=== PATIENT | female | born 1950 | race Caucasian/White ===

== ENCOUNTER 2018-01-21 11:48 | Emergency (ER) | payer MEDICARE, MEDICAID ==
[2018-01-21 12:18] LABS: URINE APPEARANCE SL CLOUDY; URINE BILIRUBIN NEGATIVE (NEGATIVE); URINE BLOOD NEGATIVE (NEGATIVE); URINE COLOR YELLOW; URINE GLUCOSE (UA) NEGATIVE (NEGATIVE); URINE KETONE NEGATIVE (NEGATIVE); URINE LEUKOCYTE ESTERASE NEGATIVE (NEGATIVE); URINE NITRITE NEGATIVE (NEGATIVE); URINE UROBILINOGEN 0.2 E.U./dL (0.20 - 1.00)
[2018-01-21 12:22] LABS: URINE RBC NONE SEEN (NONE SEEN); URINE WBC NONE SEEN (0-2/hpf)
--- NOTE | 2018-01-21 12:36 | Emergency Department Record ---
History of Present Illness - General Chief Complaint: Abdominal Pain Stated Complaint: ABD PAIN Time Seen by Provider: 01/21/18 12:30 Source: Patient, RN notes reviewed Mode of Arrival: Wheelchair - History of Present Illness Initial Comments: bilateral lower abd pain which started 2 days ago.vomiting times one after tea and toast this am. yesterday vomited times three. psh hysterectomy.appendectomy. patient was constipated on friday and took a dulculax yesterday and had a BM today Complaint: Abdominal pain Onset/Timin -: Days(s) Location: LLQ, RLQ Radiation: None Severity: Moderate Quality: Cramping, Sharp Consistency: Constant Improves With: Nothing Worsens With: Nothing Context: Other Associated Symptoms: Vomiting - Related Data Previous Rx's Medication Instructions Recorded Ciprofloxacin HCl [Cipro] 500 mg PO Q12HR #20 tablet 01/21/18 Hydrocodone/Acetaminophen [[place] 1 each PO Q4HR #20 tablet 01/21/18 5-325 Tablet] Metronidazole [Flagyl] 500 mg PO Q8HR #30 tablet 01/21/18 Allergies Allergy/AdvReac Type Severity Reaction Status Date / Time Penicillins Allergy hives Verified 01/21/18 11:53 Sulfa (Sulfonamide Allergy hives Verified 01/21/18 11:53 Antibiotics) Travel Screening - Travel/Exposure Within Last 30 Days Have you traveled within the last 30 days?: No - Travel/Exposure Within Last Year Have you traveled outside the [place] in the last year?: No - Additonal Travel Details Have you been exposed to anyone with a communicable illness?: No - Travel Symptoms Symptom Screening: None Review of Systems Reviewed: No additional complaints except as noted below Constitutional: Reports: As per HPI. Denies: Chills, Fever, Malaise, Night sweats, Weakness, Weight change Eyes: Reports: As per HPI. Denies: Eye discharge, Eye pain, Photophobia, Vision change ENT: Reports: As per HPI. Denies: Congestion, Dental pain, Ear pain, Epistaxis , Hearing loss, Throat pain Respiratory: Reports: As per HPI. Denies: Cough, Dyspnea, Hemoptysis, Stridor, Wheezes Cardiovascular: Reports: As per HPI. Denies: Arrhythmia, Chest pain, Dyspnea on exertion, Edema, Murmurs, Orthopnea, Palpitations, Paroxysmal nocturnal dyspnea, Rheumatic Fever, Syncope Endocrine: Reports: As per HPI. Denies: Fatigue, Heat or cold intolerance, Polydipsia, Polyuria Gastrointestinal: Reports: As per HPI, Abdominal pain, Vomiting. Denies: Constipation, Diarrhea, Hematemesis, Hematochezia, Melena, Nausea Genitourinary: Reports: As per HPI. Denies: Abnormal menses, Discharge, Dyspareunia, Dysuria, Frequency, Hematuria, Incontinence, Retention, Urgency Musculoskeletal: Reports: As per HPI. Denies: Arthralgia, Back pain, Gout, Joint swelling, Myalgia, Neck pain Skin: Reports: As per HPI. Denies: Bruising, Change in color, Change in hair/ nails, Lesions, Pruritus, Rash Neurological: Reports: As per HPI. Denies: Abnormal gait, Confusion, Headache, Numbness, Paresthesias, Seizure, Tingling, Tremors, Vertigo, Weakness Psychiatric: Reports: As per HPI. Denies: Anxiety, Auditory hallucinations, Depression, Homicidal thoughts, Suicidal thoughts, Visual hallucinations Hematological/Lymphatic: Reports: As per HPI. Denies: Anemia, Blood Clots, Easy bleeding, Easy bruising, Swollen glands Past Medical History - SOCIAL HISTORY Smoking Status: Never smoker Alcohol Use: None Drug Use: Heavy Drug Use Detail:: Marijuana - RESPIRATORY Hx Respiratory Disorders: No - CARDIOVASCULAR Hx Cardio Disorders: No - NEURO Hx Neuro Disorders: Yes Hx Headaches: Yes - GI Hx GI Disorders: No - Hx Genitourinary Disorders: No - ENDOCRINE Hx Endocrine Disorders: Yes Hx Diabetes: Yes - MUSCULOSKELETAL Hx Musculoskeletal Disorders: Yes Hx Arthritis: Yes - PSYCH Hx Psych Problems: No - HEMATOLOGY/ONCOLOGY Hx Hematology/Oncology Disorders: No Family Medical History Any Significant Family History?: Yes Hx Cancer: Father, Mother Physical Exam - General General Appearance: Alert, Oriented x3, Cooperative, Mild distress - Head Head exam: Normal inspection - Eye Eye exam: Normal appearance, PERRL Pupils: Normal accommodation - ENT ENT exam: Normal exam, Mucous membranes moist, Normal external ear exam, Normal orophraynx, TM's normal bilaterally Ear exam: Normal external inspection. negative: External canal tenderness Nasal Exam: Normal inspection. negative: Discharge, Sinus tenderness Mouth exam: Normal external inspection, Tongue normal Teeth exam: Normal inspection. negative: Dental caries Throat exam: Normal inspection. negative: Tonsillar erythema, Tonsillar exudate - Neck Neck exam: Normal inspection, Full ROM. negative: Tenderness - Respiratory Respiratory exam: Normal lung sounds bilaterally. negative: Respiratory distress - Cardiovascular Cardiovascular Exam: Regular rate, Normal rhythm, Normal heart sounds - GI/Abdominal GI/Abdominal exam: Soft, Normal bowel sounds, Tenderness (bilateral abdominal pain) - Rectal Rectal exam: Deferred - exam: Deferred - Extremities Extremities exam: Normal inspection, Full ROM, Normal capillary refill. negative: Tenderness - Back Back exam: Reports: Normal inspection, Full ROM. Denies: Muscle spasm, Rash noted, Tenderness - Neurological Neurological exam: Alert, Normal gait, Oriented X3, Reflexes normal - Psychiatric Psychiatric exam: Normal affect, Normal mood - Skin Skin exam: Dry, Intact, Normal color, Warm Course Vital Signs 01/21/18 11:58 Temperature 97.7 F Pulse Rate 80 Respiratory 20 Rate Blood Pressure 115/74 Pulse Ox 95 discussed treatment of diverticulitis inpatient vs outpatient and patient wants to try outpatient treatment. If she gets worse she should return to the ED. follow up with primary DrHilda in 2-5 days sooner if worse. Medical Decision Making - Data Complexity MDM Data: Labs Ordered and/or Reviewed, X-Ray Ordered and/or Reviewed ( diverticulitis) - Lab Data Result diagrams: 01/21/18 13:00 01/21/18 13:00 Lab Results 01/21/18 Range/Units 12:10 Urine Color Yellow Urine Appearance Sl cloudy Urine pH 5.5 (5.0-8.0) Ur Specific [place] 1.025 (1.002-1.030) Urine Protein 30 mg/dl H (NEGATIVE) Urine Glucose (UA) Negative (NEGATIVE) Urine Ketones Negative (NEGATIVE) Urine Blood Negative (NEGATIVE) Urine Nitrite Negative (NEGATIVE) Urine Bilirubin Negative (NEGATIVE) Urine Urobilinogen 0.2 (0.20 - 1.00) E.U./dL Ur Leukocyte Esterase Negative (NEGATIVE) Urine RBC None seen (NONE SEEN) Urine WBC None seen (0-2/hpf) Ur Epithelial Cells 3 - 6 (FEW) Disposition Clinical Impression: Diverticulitis large intestine Qualifiers: Diverticulitis bleeding: without bleeding Diverticulitis complication: without perforation or abscess Qualified Code(s): K57.32 - Diverticulitis of large intestine without perforation or abscess without bleeding Disposition: Home, Self-Care Condition: (1) Good Additional Instructions: follow up with primary DrHilda in 2-5 days and if worse return to ED clear liquids today gradually increase diet Prescriptions: Hydrocodone/Acetaminophen [[place] 5-325 Tablet] 1 each PO Q4HR #20 tablet Metronidazole [Flagyl] 500 mg PO Q8HR #30 tablet Ciprofloxacin HCl [Cipro] 500 mg PO Q12HR #20 tablet Forms: Patient Portal Access Time of Disposition: 16:53 Quality - Quality Measures Quality Measures: N/A - Blood Pressure Screening Does Patient Have Any of the Following: No Blood Pressure Classification: Normal BP Reading Systolic Measurement: 115 Diastolic Measurement: 74 Screening for High Blood Pressure: < Normal BP, F/U Not Required > [G8783]
[2018-01-21] MEDS ORDERED: 0.9 % SODIUM CHLORIDE 1000ML 1,000 ML IV PRN (12:48)
[2018-01-21 13:10] LABS: HEMATOCRIT 35.4 % (35.0-47.0); HEMOGLOBIN 11.6 gm/dl (11.6-16.0); MEAN CELL VOLUME 88.7 fl (81-97); MEAN CORPUSCULAR HEMOGLOBIN 29.1 pg (27-33); MEAN CORPUSCULAR HGB CONC 32.8 g/dl (32-36); MEAN PLATELET VOLUME 8.8 fl (7.4-10.4); PLATELET COUNT 279 K/uL (130-400); RED BLOOD COUNT 3.99 M/uL (3.80-5.40); WHITE BLOOD COUNT W/O DIFF 14.4 K/uL (4.2-12.2)
[2018-01-21 13:20] LABS: PLATELET ESTIMATE NORMAL (NORMAL)
[2018-01-21 13:21] LABS: BLOOD UREA NITROGEN 23 mg/dL (8-23); CREATININE 1.4 mg/dL (0.5-0.9); EST GLOMERULAR FILTRATION RATE 40 mL/min
[2018-01-21 13:22] LABS: TOTAL PROTEIN 7.9 g/dL (6.6-8.7)
[2018-01-21 13:24] LABS: GLUCOSE,RANDOM 137 mg/dL (74-109)
[2018-01-21 13:26] LABS: ALBUMIN 4.3 g/dL (4.0-5.0); ALT/SGPT < 5 U/L (<33); AST/SGOT 9 U/L (10.0-35.0)
[2018-01-21 13:27] LABS: ALKALINE PHOSPHATASE 81 U/L (35-104); LIPASE 34 U/L (13-60)
[2018-01-21 13:28] LABS: BILIRUBIN,DIRECT < 0.2 mg/dL (0-0.3)
[2018-01-21] MEDS ORDERED: HYDROMORPHONE HCL 1 MG/ML SYRINGE IVP ONE (15:27)
[2018-01-21] MEDS ORDERED: CIPROFLOXACIN LACTATE/D5W 400 MG/200 ML BAG IVPB ONE (15:28)
[2018-01-21] MEDS ORDERED: METRONIDAZOLE 250 MG TABLET PO ONE (15:29)
--- NOTE | 2018-01-23 05:45 | CT SCAN REPORT ---
DATE: 01/21/2018 at 1:21 p.m. EXAM: CT OF THE ABDOMEN AND PELVIS. HISTORY: Bilateral lower abdominal pain. Appendectomy and hysterectomy. Constipation for two days. TECHNIQUE: Axial CT scan of the abdomen and pelvis was performed without oral or intravenous contrast. Preliminary report provided by [facility]. COMPARISON: None. FINDINGS: No calcified gallstones are seen within the gallbladder. No intrarenal calculi or hydronephrosis identified on either side. No hydroureter seen on either side with no definite ureteral calculus seen on either side and no bladder calculus evident. Evaluation of the bowel and viscera very limited without oral or intravenous contrast. Given this limitation, no definite hepatic, splenic, adrenal, or pancreatic mass identified. The uterus and appendix are surgically absent by history and are not identified consistent with this history. Moderate diverticulosis in the left side of the colon. In addition there is prominent hazy density in the pericolonic adipose tissue in the region of the lower descending and upper sigmoid colon. This probably represents a fairly elongated segment of acute diverticulitis, although other localized colitis would be in the differential. No discrete abscess identified. No free intraperitoneal air or free intraperitoneal fluid identified. Prominent facet joint arthropathy in the lower lumbar spine and degenerative disc disease in the lower lumbar spine as well. Some prominent spurring in the lower thoracic spine. Mild lumbar curve convex to the left. The spleen is noted to be somewhat generous in size measuring about 14.2 cm in AP x 6.4 cm in transverse diameters and 14 cm in craniocaudal dimension. This is nonspecific and may be reactive. IMPRESSION: 1. APPEARANCE CONSISTENT WITH A FAIRLY EXTENSIVE LENGTH OF DIVERTICULITIS INVOLVING THE LOWER DESCENDING AND UPPER SIGMOID COLON. NO DISCRETE PERIDIVERTICULAR ABSCESS IDENTIFIED AT THIS TIME. 2. POSTOPERATIVE APPENDECTOMY AND HYSTERECTOMY. 3. MULTILEVEL DEGENERATIVE CHANGE IN THE SPINE. 4. SOMEWHAT GENEROUS-SIZED SPLEEN WITH NO OBVIOUS FOCAL SPLENIC MASS EVIDENT. JOB NUMBER: [id number] [facility]
== END 2018-01-21 17:08 | disposition home or self-care (01) ==
LOC: ER 11:48
DX: K57.32 Diverticulitis of large intestine without perforation or abscess without bleeding (principal); R11.11 Vomiting without nausea; E11.9 Type 2 diabetes mellitus without complications
CPT/HCPCS: 74176; 80048; 80076; 81001; 83690; 85027; 96365; 96375; 99284; J1170

== ENCOUNTER 2019-03-26 09:30 | Inpatient (IN) | payer MEDICARE, MEDICAID ==
[2019-04-06] MEDS ORDERED: VANCOMYCIN HCL 1 MG in DEXTROSE 5 % IN WATER 250 ML IVPB ONE ×2 (06:00)
[2019-04-06] MEDS ORDERED: CELECOXIB 100 MG CAPSULE PO ONE (06:00)
[2019-04-06] MEDS ORDERED: MECLIZINE 25 MG TABLET PO ONE (06:00)
[2019-04-06] MEDS ORDERED: RINGERS SOLUTION,LACTATED 1,000 ML IV ONE ×2 (06:00→12:40)
[2019-04-06] MEDS ORDERED: METOCLOPRAMIDE 10 MG TABLET PO ONE (06:00)
[2019-04-06] MEDS ORDERED: FAMOTIDINE 20MG TABLET PO ONE (06:00)
[2019-04-06 09:26] LABS: ABO GROUP O; ANTIBODY SCREEN NEGATIVE (NEGATIVE); RH TYPE POSITIVE
[2019-04-06] MEDS ORDERED: 0.9 % SODIUM CHLORIDE 1000ML 1,000 ML IV ONE (12:02)
[2019-04-06] MEDS ORDERED: BUPIVACAINE 0.5% W/EPI MPF 30 ML VIAL SQ ONE (12:39)
[2019-04-06] MEDS ORDERED: ROPIVACAINE HCL (NAROPIN) /PF 5MG/ML 20ML VIAL IV ONE (13:44)
[2019-04-06] MEDS ORDERED: 0.9 % SODIUM CHLORIDE 10 ML VIAL IVP ONE ×2 (13:45→14:00)
[2019-04-06] MEDS ORDERED: DEXAMETHASONE 4 MG/ML 1ML VIAL IVP ONE (13:45)
[2019-04-06] MEDS ORDERED: DIPHENHYDRAMINE HCL 25 MG CAPSULE PO PRN (13:49)
[2019-04-06] MEDS ORDERED: KETOROLAC 30 MG/ML VIAL IVP PRN ×2 (13:49)
[2019-04-06] MEDS ORDERED: NALOXONE 0.4 MG/1 ML VIAL IVP PRN (13:49)
[2019-04-06] MEDS ORDERED: HYDROCODONE/APAP 10/325 TABLET PO PRN (13:49)
[2019-04-06] MEDS ORDERED: HYDROMORPHONE HCL 2 MG/ML VIAL IM PRN (13:49)
[2019-04-06] MEDS ORDERED: TRAMADOL HCL 50 MG TABLET PO PRN (13:49)
[2019-04-06] MEDS ORDERED: AL HYDROX/MAG HYDROX 30ML UD PO PRN (13:49)
[2019-04-06] MEDS ORDERED: ONDANSETRON HCL IV 4 MG/2 ML VIAL IVP PRN (13:49)
[2019-04-06] MEDS ORDERED: BISACODYL 10 MG SUPP RC PRN (13:49)
[2019-04-06] MEDS ORDERED: ACETAMINOPHEN W/ CODEINE 300MG/60MG TABLET PO PRN ×2 (13:49)
[2019-04-06] MEDS ORDERED: ACETAMINOPHEN 325 MG TAB PO PRN (13:49)
[2019-04-06] MEDS ORDERED: ZOLPIDEM TARTRATE 5 MG TABLET PO PRN (13:49)
[2019-04-06] MEDS ORDERED: MAGNESIUM HYDROXIDE 30 ML UDC PO PRN (13:49)
[2019-04-06] MEDS ORDERED: KETAMINE HCL 100MG/1ML VIAL INJ ONE (14:00)
[2019-04-06] MEDS ORDERED: MIDAZOLAM HCL 2MG/2ML VIAL IV ONE (14:00)
[2019-04-06] MEDS ORDERED: GLYCOPYRROLATE 0.2 MG/ML ML IV ONE (14:00)
[2019-04-06] MEDS ORDERED: TRANEXAMIC ACID 1,000 MG/10 ML ML IV ONE (14:00)
[2019-04-06] MEDS ORDERED: 0.9 % SODIUM CHLORIDE 500ML 500 ML IV ONE (14:59)
[2019-04-06] MEDS: HYDROCODONE/APAP 10/325 TABLET PO PRN ×2 (16:32→20:14)
[2019-04-06] MEDS: POTASSIUM CHLORIDE/D5-0.9%NACL 20 MEQ/1,000 ML BAG IV SCH (16:33)
[2019-04-06] MEDS: GABAPENTIN 300 MG CAPSULE PO SCH ×2 (17:34→21:28)
[2019-04-06] MEDS: CYCLOBENZAPRINE 10MG TABLET PO SCH ×2 (17:34→21:28)
--- NOTE | 2019-04-06 17:43 | Rehab Evaluation ---
Patient Information - Patient Information Diagnosis: R hip OA Ordered Treatment: PT Evaluate and Treat Status: Initial Evaluation Surgery: Yes (R THR) Date of Surgery: 04/06/19 Past Medical/Surgical Hx: PAST MEDICAL/SURGICAL HISTORY Past Surgical History appy hyst PMH - Respiratory Hx Respiratory Disorders No Hx Bronchitis Yes PMH - Cardiovascular Hx Cardiovascular Disorders No Hx Edema Yes: RIGHT LEG AND FOOT Hx Hypertension Yes: ON MEDS WITH FAIR CONTROL Exercise Tolerance Fair Comment: HYPERLIPIDEMIA PMH - Neuro Hx Neurological Disorders Yes Hx Headaches Yes Hx Weakness Yes: RIGHT HIP PMH - GI Hx Gastrointestinal Disorders No PMH - Hx Genitourinary Disorders No Comment: S/P HYST PMH - Endocrine Hx Endocrine Disorders Yes Hx Diabetes Yes Hx of NIDDM Yes: ON METFORMIN Comment: CHECKS BLOOD SUGARS 120-140 PMH - Musculoskeletal Hx Musculoskeletal Disorders Yes Hx Arthritis Yes Hx Osteoporosis Yes Comment: RIGHT HIP PAIN PMH - Psych Hx Psychiatric Problems No Hx Depression Yes: CONTROLLED WITH MEDS PMH - Hematology/Oncology Hx Hematology/Oncology No Disorders Premorbid Status: Detail (The pt. was independent with all mobility prior to surgery.) Social History: Detail (The patien lives with spouse in a mobile home with 4 steps at the enterance. The bathroom is equipped with a tub shower combination , standard toilet with a riser seat. The patient stands to shower. The patient has no grab bars in the bathroom. The patient has a walker with wheels.) Precautions: [place], Fall, Other (Total Hip precautions, WBAT on the R LE) - Time With Patient Total Time Spent With Patient (Min): 20 Treatment Procedures: Detail (Initial Evaluation) Subjective Information - Subjective Information Per Patient (The patient had no complaints of pain but did complain of "rubbery " R LE when standing.) Objective Data - Mental Status Patient Orientation: Oriented x3 - Visual Perception Appears within normal limits for therapeutic activities - ROM Not within normal limits (The patient's R hip is within THR precautions. All other LE AROM is WNL) - Strength/Tone Not within normal limits (The patient's LE strength was not tested s/p however was functional . The patient was aable to lift LE's in and out of bed.) - Bed Mobility Independent (The patient was independent with supine to and from sit and scooting up in bed with minimal PA and verbal cues to keep R toe pointed forward.) - Transfers Independent (Independent sit to and from stand.) - Balance Balance Sitting: Good Balance Standing: Good - Gait Detail (The patient stood but was unable to ambulate due to numbness in R LE.) Patient Education - Patient Education Teaching Topic: Precautions (The pt. was able to identify THR precautions.) Response: Verbalize Understanding Teaching Method: Discussion Teaching Recipient: Patient Barriers To Learning: None Problem List - Problem List Physical Therapy Problem List: Detail (1) Decreased R LE strength) Goals - Goals Physical Therapy Goals: 1) The patient will ambulate independently with front wheeled waler WBAT on the R LE household distances. 2) The pt. will be independent with THR HEP. 3) The pt. will ambulate on stairs with supervision for safety using proper technique. Prognosis - Prognosis Good Plan - Plan Physical Therapy Plan: PT 1-2 visits for gait training on levels and stairs and instruction in THR HEP.
[2019-04-06] MEDS: VANCOMYCIN HCL 1,000 MG in DEXTROSE 5 % IN WATER 250 ML IVPB SCH ×2 (21:23)
[2019-04-06] MEDS: DOCUSATE SODIUM 100 MG CAPSULE PO SCH (21:27)
[2019-04-06] MEDS ORDERED: TRAZODONE 50 MG TABLET PO SCH (22:00)
[2019-04-07] MEDS: POTASSIUM CHLORIDE/D5-0.9%NACL 20 MEQ/1,000 ML BAG IV SCH ×2 (02:08→06:50)
[2019-04-07 08:20] LABS: HEMATOCRIT 30.2 % (35.0-47.0); HEMOGLOBIN 9.9 gm/dl (11.6-16.0)
[2019-04-07 08:42] LABS: CREATININE 1.1 mg/dL (0.5-0.9)
[2019-04-07] MEDS ORDERED: PNEUM 13-VAL/PF 0.5 ML IM ONE (09:00)
--- NOTE | 2019-04-07 09:54 | Physical Therapy Tx Note ---
Physical Therapy Tx Note - Treatment Note Tolerated: Good Total Time Spent With Patient: 20 Physical Therapy Tx Note: Detail (The patient was up in chair when PT arrived. The patient ambulated independently with front wheeled walker WBAT on the R LE a distance of 108 feet x 1. The patient ambulated on stairs with use of folded walker and railing using proper technique with supervision for safety. The patient completed the following THR exercises including: gluteal sets, hamstring sets, hip abduction supine, heel slides, quad sets and ankle pumps. The patient demonstrated good understanding of THR precautions. The patient has met all inpatient PT goals.) Physical Therapy Problem List: Detail (1) Decreased R LE strength) Physical Therapy Goals: 1) The patient will ambulate independently with front wheeled waler WBAT on the R LE household distances. (Goal Met). 2) The pt. will be independent with THR HEP (Goal Met). 3) The pt. will ambulate on stairs with supervision for safety using proper technique. (Goal Met) Physical Therapy Plan: The patient is discharged from inpatient PT and is to receive Home PT.
[2019-04-07] MEDS ORDERED: ASPIRIN 81 MG TABEC PO SCH (10:00)
[2019-04-07] MEDS ORDERED: METFORMIN 500 MG TABLET PO SCH (10:00)
[2019-04-07] MEDS ORDERED: SERTRALINE HCL 50 MG TABLET PO SCH (10:00)
[2019-04-07] MEDS ORDERED: LORATADINE 10 MG TABLET PO SCH (10:00)
[2019-04-07] MEDS ORDERED: RIVAROXABAN 10 MG TABLET PO SCH (10:00)
[2019-04-07] MEDS ORDERED: FERROUS SULFATE 325 MG TAB PO SCH (10:00)
[2019-04-07] MEDS ORDERED: LISINOPRIL 10 MG TABLET PO SCH (10:00)
[2019-04-07] MEDS: VANCOMYCIN HCL 1,000 MG in DEXTROSE 5 % IN WATER 250 ML IVPB SCH ×2 (10:46)
[2019-04-07] MEDS: HYDROCODONE/APAP 10/325 TABLET PO PRN (10:51)
[2019-04-07] MEDS: DOCUSATE SODIUM 100 MG CAPSULE PO SCH (10:52)
[2019-04-07] MEDS: GABAPENTIN 300 MG CAPSULE PO SCH (10:53)
[2019-04-07] MEDS: CYCLOBENZAPRINE 10MG TABLET PO SCH (10:53)
--- NOTE | 2019-04-07 12:30 | Rehab Evaluation ---
Patient Information - Patient Information Diagnosis: R hip OA Ordered Treatment: OT Evaluate and Treat Status: Initial Evaluation Surgery: Yes (R THR) Date of Surgery: 04/06/19 Past Medical/Surgical Hx: PAST MEDICAL/SURGICAL HISTORY Past Surgical History appy hyst PMH - Respiratory Hx Respiratory Disorders No Hx Bronchitis Yes PMH - Cardiovascular Hx Cardiovascular Disorders No Hx Edema Yes: RIGHT LEG AND FOOT Hx Hypertension Yes: ON MEDS WITH FAIR CONTROL Exercise Tolerance Fair Comment: HYPERLIPIDEMIA PMH - Neuro Hx Neurological Disorders Yes Hx Headaches Yes Hx Weakness Yes: RIGHT HIP PMH - GI Hx Gastrointestinal Disorders No PMH - Hx Genitourinary Disorders No Comment: S/P HYST PMH - Endocrine Hx Endocrine Disorders Yes Hx Diabetes Yes Hx of NIDDM Yes: ON METFORMIN Comment: CHECKS BLOOD SUGARS 120-140 PMH - Musculoskeletal Hx Musculoskeletal Disorders Yes Hx Arthritis Yes Hx Osteoporosis Yes Comment: RIGHT HIP PAIN PMH - Psych Hx Psychiatric Problems No Hx Depression Yes: CONTROLLED WITH MEDS PMH - Hematology/Oncology Hx Hematology/Oncology No Disorders Premorbid Status: Detail (The Pt was independent with all ADLs and mobility prior to surgery and driving.) Social History: Detail (The patient lives with spouse and [id number] in a mobile home with 4 steps at the entrance and a hand rail on the R side. The bathroom is equipped with a tub shower combination, a shower chair, and a standard toilet with a riser seat. The patient stands to shower. The patient has no grab bars in the bathroom. The patient has a walker with wheels.) Precautions: [place], Fall, Other (Total Hip precautions, WBAT on the R LE) - Time With Patient Total Time Spent With Patient (Min): 38 (1 E, 1 SC) Treatment Procedures: Detail (OT eval: Low complexity) Subjective Information - Subjective Information Per Patient (OK to see per EMILIA Gonzalez. Pt agreeable to OT eval and Tx.) Objective Data - Pain Pain Present: Yes Pain Scale Used: Numeric (1 - 10) (3/10 R hip) - Mental Status Patient Orientation: Oriented x3 - Visual Perception Appears within normal limits for therapeutic activities - ROM Within normal limits - Strength/Tone Within normal limits - Coordination Appears within normal limits for therapeutic activities - Bed Mobility Independent (supine > EOB) - Transfers Independent (sit >< stand from elevated surfaces with good awareness of hip prec.) - Balance Balance Sitting: Good Balance Standing: Good (standing pant mgmt with supervision) - Sensation Intact - Gait Detail (Fxl amb within bedroom with FWW and supervision.) - ADL's/IADL's Detail (OT educ. Pt on AE for LB dress, Pt demos mod I to don/doff underwear, pants, socks. MIN to don shoes - Pt reports spouse will assist at [place]. Pt purchases sock aide and tax accounting manager. OT educ. Pt on mod. tech. for kitchen, bathroom, and laundry safety. Pt reports to assist with laundromat task at [place]. Pt verbalizes and demos good use of hip prec. throughout session.) Therapy Assessment - Therapy Assessment Detail (Pt demos safety and MOD I - supervision with all ADLs and fxl mobility. Spouse available to assist PRN at [place]. Rec home DCP with spouse assist PRN when medically ready.) Problem List - Problem List Physical Therapy Problem List: Detail (1) Decreased R LE strength) Occupational Therapy Problem List: Detail (No further inpatient OT needs identified.) Goals - Goals Physical Therapy Goals: 1) The patient will ambulate independently with front wheeled waler WBAT on the R LE household distances. (Goal Met). 2) The pt. will be independent with THR HEP (Goal Met). 3) The pt. will ambulate on stairs with supervision for safety using proper technique. (Goal Met) Occupational Therapy Goals: No further inpatient OT needs/goals identified. Prognosis - Prognosis Good Plan - Plan Physical Therapy Plan: The patient is discharged from inpatient PT and is to receive Home PT. Occupational Therapy Plan: No further inpatient OT needs identified. [place] inpatient OT services. Thank you for this referral.
--- NOTE | 2019-04-09 08:10 | Discharge Summary ---
DATE OF ADMISSION: 04/06/2019 DATE OF DISCHARGE: 04/07/2019 DATE OF SURGERY: 04/06/2019 HISTORY: The patient is a delightful 69-year-old female who presents with end- stage arthrosis of her right hip. She was admitted after right total hip arthroplasty. Postoperatively she did well. Her hospital course was unremarkable. Discharge hemoglobin was above 9. The plan is to discharge her home in the care of her family, and home PT visiting nurse has been arranged. She will be given [place] for pain and Xarelto for DVT prophylaxis. She will follow up with Xarelto with aspirin. Sutures will be removed by the visiting nurse in 2 weeks. She will follow up in my office in 4 weeks. FINAL DIAGNOSIS/PRIMARY DIAGNOSIS: End-stage arthrosis of the right hip. SECONDARY DIAGNOSIS: Operative blood loss anemia. OPERATIONS AND PROCEDURES: Cementless right total hip arthroplasty. TOLU
--- NOTE | 2019-04-09 09:30 | Operative Note ---
DATE OF SERVICE: 04/06/2019. DATE OF SURGERY: 04/06/2019. PREOPERATIVE DIAGNOSIS: End-stage arthrosis of the right hip. POSTOPERATIVE DIAGNOSIS: End-stage arthrosis of the right hip. OPERATION: Cementless right total hip arthroplasty with [employer] components, with a size 52 no-hole Reflection cup, a 35 degree offset, 32 mm diameter liner, a size 14 high-offset cementless [place] stem with a +4, 32 mm diameter cobalt chrome head. SURGEON: Lenny Auguste MD. ANESTHESIA: Spinal. PREPARATION: ChloraPrep. INDIVIDUAL CONSIDERATIONS: None. PROCEDURE: Patient was taken to the operating room, placed supine on the operating room table. She had a successful induction with spinal anesthetic. She was then placed on her side, right side up, and her right leg and hip were prepped and draped in the usual fashion. Patient had direct approach to approach the hip. Sharp dissection carried down through skin and subcutaneous tissue. Small veins were coagulated with a Bovie. Sharp dissection carried down through the fascia. Deep retractors were placed. The external rotators were identified, piriformis fossa removed, exposing the posterior capsule. Posterior capsulectomy was performed. Hip was dislocated posteriorly. She had huge osteophytes posteriorly and superiorly, and these were removed with an osteotome and a rongeur. Femoral neck cut was made prior to this about a finger breadth above the lesser troch with an oscillating saw, and also a rim capsulectomy was performed. Starting with a 45 mm reamer to find the medial wall, I reamed to the introitus, which was 51 for a 52 cup. I slightly underreamed to 50. After irrigation, I impacted a size 52 no-hole Reflection cup in 20 degrees of forward flexion and 40 degrees of abduction using the extraarticular alignment guide and bony landmarks. There was solid cementless fixation. The center cap screw was placed, and then I impacted the liner, which was a 35 degree offset, 32 mm diameter liner with the offset slightly posteriorly and slightly inferiorly. This gave an excellent stable acetabular construct, and this was packed off. Proximal femur was delivered into the wound. Box cutting osteotome was used to remove proximal metaphyseal bone. Did start reaming this down to 14, and I started feeling cortex between 12 and 13. Broached to 14, dialed anteversion of about 25-30 degrees to follow the natural anteversion angle. After calcar reaming with a +4 head, I had good stability. I removed the trial, irrigated out completely, and impacted a size 14 high-offset [place] stem with solid calcar contact and solid cementless fixation. Again, with a +4 trial, I had absolute stability. I irrigated it out, replaced it with the implant after drying the Couch taper and reducing. I had full anterior stability and external rotation, extension. I flexed up with her knee in her chest and then internally rotated 20 degrees. Full stability at 90 degrees flexion, 90 degrees of internal rotation, and still had posterior stability. Sciatic nerve was inspected, found to be completely intact. Hemostasis was obtained with a Bovie. After irrigation, I mixed 1 g of tranexamic acid with 30 mL of saline, placed this deep in the fascia. The fascia was then closed with running #2 Quill. Subcu was closed in layers of running 0 Quill. Skin was closed with donna. Prior to stapling, I did infiltrate the skin and subcutaneous tissue with 30 mL of 0.5% Marcaine with epinephrine, and a sterile, bulky, compressive ELVIS-type dressing was applied. Patient tolerated the procedure well. Needle and sponge counts were correct. Estimated blood loss was 300 mL, and she was taken back to recovery. We will check a hemoglobin in the morning. There were no complications. TOLU
== END 2019-04-07 12:15 | disposition home health service (06) | DRG 470 ==
LOC: MEDSURG 04-06 08:27
PROVIDERS: ADMIT Orthopaedic Surgery; ATTEND Orthopaedic Surgery
PROC: 0SR906A Replacement of Right Hip Joint with Oxidized Zirconium on Polyethylene Synthetic Substitute, Uncemented, Open Approach (ICD-10-PCS; principal; 2019-04-06 11:00)
DX: M16.11 Unilateral primary osteoarthritis, right hip (principal); I10 Essential (primary) hypertension; E11.9 Type 2 diabetes mellitus without complications; E78.00 Pure hypercholesterolemia, unspecified
CPT/HCPCS: 36416; 76942; 80048; 82948; 85014; 85018; 86850; 86900; 86901; 90670; 97530; C1776; J3480; J3490; J7030; J7060; J7120

== ENCOUNTER 2019-07-23 10:08 | Emergency (ER) | payer MEDICAID, MEDICARE ==
--- NOTE | 2019-07-23 11:00 | Emergency Department Record ---
History of Present Illness - General Chief Complaint: Fall Injury Stated Complaint: FALL Time Seen by Provider: 07/23/19 10:24 Source: Patient Mode of Arrival: Ambulatory Limitations: No limitations - History of Present Illness Initial Comments: pt fell last evening when she missed a step. she injured her r ankle, r knee, r hip and r shoulder. Complaint: Fall Onset/Timin -: Days(s) Fall From: Standing When Fall Occurred: Other Fall Witnessed: Yes, by family Place Fall Occurred: Home Loss of Consciousness: None Prolonged Down Time?: No Location - Extremities: Right: Shoulder, Thigh, Knee, Ankle Severity: Moderate Severity scale (1-10): 10 Quality: Aching Associated Symptoms: Denies - [place] Coma Scale Eye Response: (4) Open spontaneously Motor Response: (6) Obeys commands Verbal Response: (5) Oriented [place] Total: 15 - Related Data Previous Rx's Medication Instructions Recorded Hydrocodone/Acetaminophen [[place] 1 each PO Q4HR #20 tablet 01/21/18 5-325 Tablet] Allergies Allergy/AdvReac Type Severity Reaction Status Date / Time Penicillins Allergy hives Verified 07/23/19 10:18 Sulfa (Sulfonamide Allergy hives Verified 07/23/19 10:18 Antibiotics) Travel Screening - Travel/Exposure Within Last 30 Days Have you traveled within the last 30 days?: No - Travel/Exposure Within Last Year Have you traveled outside the [place] in the last year?: No - Additonal Travel Details Have you been exposed to anyone with a communicable illness?: No - Travel Symptoms Symptom Screening: None Review of Systems Reviewed: No additional complaints except as noted below Constitutional: Reports: As per HPI. Denies: Chills, Fever, Malaise, Night sweats, Weakness, Weight change Eyes: Reports: As per HPI. Denies: Eye discharge, Eye pain, Photophobia, Vision change ENT: Reports: As per HPI. Denies: Congestion, Dental pain, Ear pain, Epistaxis, Hearing loss, Throat pain Respiratory: Reports: As per HPI. Denies: Cough, Dyspnea, Hemoptysis, Stridor, Wheezes Cardiovascular: Reports: As per HPI. Denies: Arrhythmia, Chest pain, Dyspnea on exertion, Edema, Murmurs, Orthopnea, Palpitations, Paroxysmal nocturnal dyspnea, Rheumatic Fever, Syncope Endocrine: Reports: As per HPI. Denies: Fatigue, Heat or cold intolerance, Polydipsia, Polyuria Gastrointestinal: Reports: As per HPI. Denies: Abdominal pain, Constipation, Diarrhea, Hematemesis, Hematochezia, Melena, Nausea, Vomiting Genitourinary: Reports: As per HPI. Denies: Abnormal menses, Discharge, Dyspareunia, Dysuria, Frequency, Hematuria, Incontinence, Retention, Urgency Musculoskeletal: Reports: As per HPI. Denies: Arthralgia, Back pain, Gout, Joint swelling, Myalgia, Neck pain Skin: Reports: As per HPI. Denies: Bruising, Change in color, Change in hair/nails, Lesions, Pruritus, Rash Neurological: Reports: As per HPI. Denies: Abnormal gait, Confusion, Headache, Numbness, Paresthesias, Seizure, Tingling, Tremors, Vertigo, Weakness Psychiatric: Reports: As per HPI. Denies: Anxiety, Auditory hallucinations, Depression, Homicidal thoughts, Suicidal thoughts, Visual hallucinations Hematological/Lymphatic: Reports: As per HPI. Denies: Anemia, Blood Clots, Easy bleeding, Easy bruising, Swollen glands Past Medical History - SOCIAL HISTORY Smoking Status: Never smoker Alcohol Use: None Drug Use: None - RESPIRATORY Hx Respiratory Disorders: No - CARDIOVASCULAR Hx Cardio Disorders: No - NEURO Hx Neuro Disorders: Yes Hx Headaches: Yes - GI Hx GI Disorders: No - Hx Genitourinary Disorders: No - ENDOCRINE Hx Endocrine Disorders: Yes Hx Diabetes: Yes (NIDDM) - MUSCULOSKELETAL Hx Musculoskeletal Disorders: Yes Hx Arthritis: Yes Comment:: RIGHT HIP PAIN - PSYCH Hx Psych Problems: No - HEMATOLOGY/ONCOLOGY Hx Hematology/Oncology Disorders: No Family Medical History Any Significant Family History?: Yes Hx Cancer: Father, Mother Physical Exam - General General Appearance: Alert, Oriented x3, Cooperative, Mild distress - Head Head exam: Normal inspection - Eye Eye exam: Normal appearance, PERRL, EOMI Pupils: Normal accommodation - ENT ENT exam: Normal exam, Mucous membranes moist, Normal external ear exam, Normal orophraynx Ear exam: Normal external inspection. negative: External canal tenderness Nasal Exam: Normal inspection. negative: Discharge, Sinus tenderness Mouth exam: Normal external inspection, Tongue normal Teeth exam: Normal inspection. negative: Dental caries Throat exam: Normal inspection. negative: Tonsillar erythema, Tonsillar exudate - Neck Neck exam: Normal inspection, Full ROM. negative: Tenderness - Respiratory Respiratory exam: Normal lung sounds bilaterally. negative: Respiratory distress - Cardiovascular Cardiovascular Exam: Regular rate, Normal rhythm, Normal heart sounds - GI/Abdominal GI/Abdominal exam: Soft, Normal bowel sounds. negative: Tenderness - Rectal Rectal exam: Deferred - exam: Deferred - Extremities Extremities exam: Normal capillary refill, Tenderness. negative: Full ROM Image of Full Body: 1 - tender 2 - tender 3 - tender w swelling 4 - tender w swelling and contusion - Back Back exam: Reports: Normal inspection, Full ROM. Denies: Muscle spasm, Rash noted, Tenderness - Neurological Neurological exam: Abnormal gait, Alert, CN II-XII intact, Oriented X3 - Psychiatric Psychiatric exam: Normal affect, Normal mood - Skin Skin exam: Dry, Intact, Normal color, Warm Course Vital Signs 07/23/19 10:11 Temperature 97.3 F L Pulse Rate 71 Respiratory 18 Rate Blood Pressure 148/67 Pulse Ox 97 Disposition Disposition: Discharge Clinical Impression: Multiple contusions Ankle sprain Qualifiers: Encounter type: initial encounter Involved ligament of ankle: unspecified ligament Laterality: right Qualified Code(s): S93.401A - Sprain of unspecified ligament of right ankle, initial encounter Disposition: Home, Self-Care Condition: (1) Good Instructions: Fall Prevention for Older Adults (ED), Ankle Sprain (ED), Ankle Stirrup Splint (ED), Contusion in Adults (ED) Additional Instructions: follow up with family doctor. return sooner if worse. ice to sore area. motrin with food Forms: Patient Portal Access Quality - Quality Measures Quality Measures: N/A - Blood Pressure Screening Does Patient Have Any of the Following: Active Dx of HTN Blood Pressure Classification: Hypertensive Reading Systolic Measurement: 148 Diastolic Measurement: 67 Screening for High Blood Pressure: Patient Exclusion, Hx of HTN [[id number]]
--- NOTE | 2019-07-24 22:56 | RADIOLOGY REPORT ---
EXAM: ANKLE RIGHT 3 VIEWS HISTORY: LATERAL RIGHT ANKLE PAIN ONE DAY POST FALL. TECHNIQUE: Three views of the right ankle. COMPARISON: None. ENCOUNTER: Initial. FINDINGS: There is normal bone mineralization. No definite acute fracture nor dislocation. There is spurring at the tip of the lateral malleolus. On the AP view, there is subtle lucency near the medial margin of the medial malleolus, likely a normal variant trabecular pattern rather than nondisplaced fracture. The ankle mortise joint is symmetric. There are mild degenerative changes of the talonavicular joint with dorsal beaking/spurring present. A small plantar calcaneal spur is present. There is anterolateral soft tissue swelling. IMPRESSION: 1. NO DEFINITE ACUTE FRACTURE NOR DISLOCATION. PLEASE SEE ABOVE DISCUSSION. 2. ANTEROLATERAL SOFT TISSUE SWELLING. 3. SMALL PLANTAR CALCANEAL SPUR. JOB [facility]BER: [id number] [facility]
--- NOTE | 2019-07-24 23:00 | RADIOLOGY REPORT ---
EXAM: KNEE, RIGHT 4 VIEWS HISTORY: PAIN ONE DAY POST FALL. TECHNIQUE: Four views of the right knee. COMPARISON: None. ENCOUNTER: Initial. FINDINGS: There is normal bone mineralization. No acute acute fracture, dislocation, or destructive bone lesion is seen. Tricompartmental osteoarthritic changes are identified, most pronounced in the medial compartment, where they are mild to moderate in degree. No joint effusion. There is enthesopathic spurring involving the upper and lower poles of the patella. No focal soft tissue abnormality. IMPRESSION: 1. NO ACUTE FRACTURE NOR DISLOCATION. 2. TRICOMPARTMENTAL OSTEOARTHRITIS. [facility]: [id number] [facility]
--- NOTE | 2019-07-24 23:03 | RADIOLOGY REPORT ---
EXAM: SHOULDER, RIGHT HISTORY: PAIN ONE DAY POST FALL. TECHNIQUE: Three views of the right shoulder. COMPARISON: None. ENCOUNTER: Initial. FINDINGS: There is normal bone mineralization. No acute fracture, dislocation, or destructive bone lesion is seen. Moderate to severe hypertrophic degenerative changes of the acromioclavicular joint are identified. Mild osteoarthritic spurring of the glenohumeral joint also suggested. No periarticular erosion. No focal soft tissue abnormality. IMPRESSION: 1. NO ACUTE FRACTURE NOR DISLOCATION. 2. DEGENERATIVE CHANGES. JOB NUMBER: [id number] [facility]
--- NOTE | 2019-07-24 23:08 | RADIOLOGY REPORT ---
EXAM: HIP,UNILAT, 2-3 VIEW RIGHT HISTORY: RIGHT HIP PAIN POST FALL ONE DAY AGO. TECHNIQUE: An AP view of the pelvis is obtained as well as AP and frog-leg lateral views of the right hip. COMPARISON: CT abdomen and pelvis without contrast dated 01/21/2018. ENCOUNTER: Initial. FINDINGS: Since the prior CT abdomen and pelvis examination, there has been total right hip arthroplasty. There is mild prominence of lucency of the superior bone-prosthesis interface of the acetabular component. No prior examination is available to determine whether this is the initial post procedure appearance or if there has been osteolysis. No acute fracture nor dislocation. Mild degenerative changes of the left hip. There are mild to moderate degenerative changes of the lower lumbar spine. Enthesopathic spurring of the iliac wings. IMPRESSION: 1. STATUS POST TOTAL RIGHT HIP ARTHROPLASTY. THERE IS MILD PROMINENCE OF LUCENCY NEAR THE SUPERIOR BONE-PROSTHESIS INTERFACE OF THE ACETABULAR COMPONENT. PLEASE SEE ABOVE DISCUSSION. NO ACUTE FRACTURE NOR DISLOCATION. 2. MILD DEGENERATIVE CHANGES OF THE LEFT HIP. [facility]: [id number] [facility]
== END 2019-07-23 12:33 | disposition home or self-care (01) ==
LOC: ER 10:08
DX: S93.491A Sprain of other ligament of right ankle, initial encounter (principal); W10.8XXA Fall (on) (from) other stairs and steps, initial encounter; M17.11 Unilateral primary osteoarthritis, right knee; Z96.641 Presence of right artificial hip joint
CPT/HCPCS: 99284; 99285